=== PATIENT | male | born 1960 | race African-American/Black ===

== ENCOUNTER 2022-03-25 00:46 | Day surgery (SDC) | payer OTHER, SELFPAY ==
[2022-03-15 15:17] VITALS: BMI 33.8
--- NOTE | 2022-03-24 13:11 | PM.HPGS ---
History of Present Illness History of Present Illness Consent: Risks, benefits, and alternatives have been discussed and questions answered. Patient agrees to proceed with procedure. Chief complaint: neoplasm screening, hx colon polyps Narrative: Ed Kenny is a 61 year old male With a history of colon polyps referred for colon cancer screening. Review of Systems Review of Systems: All systems reviewed & are unremarkable except as noted in HPI and below PMFSH Social History Social History Smoking status: Never smoker Substance use type: does not use Living arrangements: with family Spiritual care concerns: No Meds Home Medications and Allergies Home Medications Medication Instructions Recorded Confirmed Type atorvastatin 20 mg tablet 20 mg PO HS 03/15/22 03/25/22 History lansoprazole 30 mg capsule,delayed 30 mg PO BID 03/15/22 03/25/22 History release lisinopril 40 mg tablet 40 mg PO DAILY 03/15/22 03/25/22 History Allergies Allergy/AdvReac Type Severity Reaction Status Date / Time No Known Allergies Allergy Verified 03/25/22 08:24 Exam Resp: Auscultation: clear to auscultation bilaterally Cardio: Rate: regular rate Rhythm: regular rhythm GI: GI Palp: Yes Soft to palpation and No Tenderness to palpation present (GI) Assessment and Plan Assessment and plan (1) Colon cancer screening: Code(s): Z12.11 - Encounter for screening for malignant neoplasm of colon Status: Acute Assessment and Plan: Colonoscopy with possible biopsy or polypectomy or cautery or injection of substances.
[2022-03-25 08:26] VITALS: BP 158/95; PULSE 71; RESP 20; TEMP 36.9; O2SAT 100
[2022-03-25] MEDS: LACTATED RINGERS 1,000 ML 150 ML IV CONT (08:40)
--- NOTE | 2022-03-25 09:19 | P.PNAN_ITS ---
Anes - Initial Pre Proc Eval Procedure: Operation Date: 03/25/22 09:30 Proposed Procedures p Screening Colonoscopy - Rodolfo Mcgowan MD Date/Time: 03/25/22 09:19 Surgeon: Rodolfo Mcgowan MD Pre Op Diagnosis: neoplasm screening, hx colon polyps Patient Data Age: 61 Gender: M Height: 1.96 m Weight: 130 kg Last Vital Signs Temp 98.5 F 03/25/22 08:26 Pulse 71 03/25/22 08:26 Resp 20 03/25/22 08:26 BP 158/95 H 03/25/22 08:26 Pulse Ox 100 03/25/22 08:26 O2 Del Method Room Air 03/25/22 08:26 Allergies Allergy/AdvReac Type Severity Reaction Status Date / Time No Known Allergies Allergy Verified 03/25/22 08:24 Home Medications Medication Instructions Recorded Confirmed Type atorvastatin 20 mg tablet 20 mg PO HS 03/15/22 03/25/22 History lansoprazole 30 mg capsule,delayed 30 mg PO BID 03/15/22 03/25/22 History release lisinopril 40 mg tablet 40 mg PO DAILY 03/15/22 03/25/22 History Patient hx anesthesia problems: none Family hx anesthesia problems: none Results Review: All pre-operative results and documents have been reviewed as part of the pre- operative evaluation. [facility] Social History Social History Smoking status: Never smoker Substance use type: does not use Living arrangements: with family Spiritual care concerns: No Anes - Eval Final PreProcedure Day of Procedure 03/25/22 09:19 Patient weight: obese Heart: regular rate and rhythm Lungs: clear to auscultation Airway: Mallampati scale class II Neurological: alert and oriented Last oral intake: >/= 8 hours ASA classification: III Emergent: no Anesthetic plan: proceed Anesthesia type and monitoring: general GIVS and standard monitoring Results Review: All pre-operative results and documents have been reviewed as part of the pre- operative evaluation. Informed Consent: The patient's anesthetic plan and its attendant risks and benefits were discussed with the patient/family/POA. Questions were solicited and answers provided to the satisfaction of the patient/family/POA.
[2022-03-25 09:40] VITALS: BP 100/51; PULSE 77; RESP 18; O2SAT 100
[2022-03-25 09:50] VITALS: BP 104/55; PULSE 74; RESP 24; O2SAT 100
[2022-03-25 10:00] VITALS: BP 114/79; PULSE 73; RESP 24; O2SAT 100
== END 2022-03-25 10:05 | disposition home or self-care (01) ==
PROVIDERS: PCP Internal Medicine; Visit Provider Internal Medicine Gastroenterology
PROC: 0DJD8ZZ Inspection of Lower Intestinal Tract, Via Natural or Artificial Opening Endoscopic (ICD-10-PCS; CPT 45378; principal; 2022-03-25 09:30)
DX: Z12.11 Encounter for screening for malignant neoplasm of colon (principal); K57.30 Diverticulosis of large intestine without perforation or abscess without bleeding; Z86.010 Personal history of colon polyps; E66.9 Obesity, unspecified; Z68.34 Body mass index [BMI] 34.0-34.9, adult
CPT/HCPCS: 45378; J2704; J7120